=== PATIENT | female | born 1975 | race African-American/Black ===

== ENCOUNTER 2025-01-29 04:28 | Emergency (ER) | payer SELFPAY ==
[~2025-01-29] VITALS: Ht 162.6 cm; Wt 98.0 kg
[2025-01-29 04:30] VITALS: O2SAT 99
[2025-01-29 04:37] VITALS: BP 142/104; PULSE 100; RESP 18; TEMP 36.9; O2SAT 99
== END 2025-01-29 04:57 | disposition left against medical advice (07) ==
LOC: ER 04:28
DX: R10.9 Unspecified abdominal pain (principal); Z88.0 Allergy status to penicillin
CPT/HCPCS: 99282

== ENCOUNTER 2025-01-29 07:07 | Emergency (ER) | payer BC, MEDICAID ==
[~2025-01-29] VITALS: Ht 149.9 cm; Wt 73.0 kg
[2025-01-29 07:28] VITALS: BP 103/76; PULSE 95; RESP 18; TEMP 36.8; O2SAT 100
== END 2025-01-29 09:16 | disposition left against medical advice (07) ==
LOC: ER 07:07
DX: Z00.00 Encounter for general adult medical examination without abnormal findings (principal); Z88.0 Allergy status to penicillin
CPT/HCPCS: 99282; A4606